=== PATIENT | female | born 1985 | race Caucasian/White ===

== ENCOUNTER 2018-03-29 05:20 | Inpatient (IN) | payer MEDICARE, MEDICAID ==
--- NOTE | 2018-03-24 11:58 | HP ---
HISTORY OF PRESENT ILLNESS: This is a 33-year-old female, who reports to our office for evaluation of headaches with an MRI that shows Chiari malformation type 1. The patient has headache throughout her life, however, in the last several months, they have gotten worse. If she picks up something or bears down to the restroom, she will get a headache that makes her feel like her head will explode. The patient has been taking butalbital and baclofen, which has some relief of her chronic headaches. She denies visits to ophthalmology and she states that she still feels dizzy and off balance on occasion, but denies vertigo. REVIEW OF SYSTEMS: A 10-point review of systems has been completed and is negative other than stated in the above HPI. PAST MEDICAL HISTORY: Alcohol and drug use, anemia, anxiety, allergies, chronic pain, depression, headaches, hypertension. PAST SURGICAL HISTORY: The patient denies any surgical history. FAMILY HISTORY: Father is alive. Mother is . SOCIAL HISTORY: The patient is a current smoker. Denies any alcohol use. States that she currently uses marijuana. MEDICATIONS: Denies. ALLERGIES: KRISTEL. PHYSICAL EXAMINATION: HEENT: Normal. Head is normocephalic and atraumatic. Pupils are equal, round, and reactive to light. Extraocular movements are intact. Hearing is intact. Moist mucous membranes. NECK: Soft and supple. No masses are noted. Range of motion is intact and tender midline. Base of the neck pain with lateral rotation. RESPIRATIONS: Normal work of breathing on room air. CARDIAC: Regular rate and rhythm. EXTREMITIES: Upper extremities, normal motor 5/5 strength bilateral, deltoids, biceps, triceps, wrist extension, finger extension, finger intrinsics. No deep tendon or sensory deficits noted. NEUROLOGIC: Awake, alert, and oriented x3. Memory, attention, fund of knowledge , and language are all normal. Cranial nerves 2 through 12 are intact. IMAGING DATA: MRI of the brain, Chiari malformation type 1. ASSESSMENT AND PLAN: Chiari malformation type 1. Dr. Billingsley has offered a Chiari decompression. The patient states her understanding of the risks and benefits and willing to proceed with surgery. Job ID: [id number] [facility]
[2018-03-29] MEDS ORDERED: Lidocaine 0.5%/Epinephrine 1:200,000 50 ml Vial ONE (06:19)
[2018-03-29] MEDS ORDERED: Bupivacaine HCl 0.5%/Epinephrine 1:200,000/PF 30 ml Vial ONE (06:19)
[2018-03-29] MEDS ORDERED: Sodium Chloride 0.9% 30 ML ONE (06:19)
[2018-03-29] MEDS ORDERED: Bacitracin Zinc Ointment 30 gm TUBE ONE (06:20)
[2018-03-29] MEDS ORDERED: Thrombin 5000 UNITS/5 ML VIAL ONE (06:20)
[2018-03-29] MEDS ORDERED: Fentanyl 100 MCG/2 ML VIAL ONE ×4 (06:33→13:14)
[2018-03-29] MEDS ORDERED: CEFAZOLIN 2 GM/50 ML BAG ONE (06:53)
[2018-03-29] MEDS ORDERED: Midazolam HCl 2 mg/2 ml Vial ONE (06:53)
[2018-03-29 07:24] LABS: INR-International Normal Ratio 1.1; Prothrombin Time 13.9 SEC (12.0-14.7)
[2018-03-29 07:26] LABS: #Eosinphils 0.2 thou/uL (0.0-0.7); #Lymphocytes 1.7 thou/uL (1.20-3.40); #Monocytes 0.3 thou/uL (0.11-0.59); #Neutrophils 5.5 thou/uL (1.40-6.50); %Basophils 0.2 % (0.0-1.0); %Eosinophils 2.4 % (0.0-10.0); %Lymphocytes 22.2 % (21.0-51.0); %Monocytes 3.9 % (0.0-10.0); %Neutrophils 71.3 % (42.0-75.0); Hemoglobin 9.8 g/dL (12.0-16.0); Mean Corpuscular HGB CONC 30.8 g/dL (32.0-36.0); Mean Corpuscular Hemoglobin 23.5 pg (27.0-31.0); Mean Corpuscular Volume 76.2 fL (78.0-98.0); Mean Platelet Volume 9.5 fL (7.4-10.4); Platelet Count 254 thou/uL (130-400); RBC Distribution Width 15.2 % (11.5-14.5); Red Blood Cell (RBC) Count 4.18 mill/uL (4.20-5.40); White Blood Cell (WBC) Count 7.7 thou/uL (4.8-10.8)
[2018-03-29] MEDS ORDERED: Ondansetron HCl/PF 4 MG/2 ML Vial IVP PRN (09:09)
[2018-03-29] MEDS ORDERED: PHENYLEPHRINE-NS 100 MCG/ML 10 ML SYRINGE ONE ×2 (09:24→15:49)
[2018-03-29] MEDS ORDERED: Phenylephrine HCL 10 MG/ML VIAL ONE (10:34)
[2018-03-29] MEDS ORDERED: Esmolol 100 MG/10 ML VIAL ONE ×2 (10:38→15:49)
[2018-03-29] MEDS ORDERED: Rocuronium Bromide 50 MG/5 ML VIAL ONE (10:39)
[2018-03-29] MEDS ORDERED: HYDROcodone/Acetaminophen 7.5/325 mg Tablet PO PRN (12:39)
[2018-03-29] MEDS ORDERED: Morphine 2 MG/ML SYRINGE SLOW IVP PRN (12:39)
[2018-03-29] MEDS ORDERED: Cepastat Lozenges 1 LOZ PO PRN (12:39)
[2018-03-29] MEDS ORDERED: diphenhydrAMINE 50 MG CAP PO PRN (12:39)
[2018-03-29] MEDS ORDERED: Morphine 4 MG/ML VIAL SLOW IVP PRN (12:39)
[2018-03-29] MEDS ORDERED: Acetaminophen 650 MG Suppository PR PRN (12:39)
[2018-03-29] MEDS ORDERED: Promethazine 25 MG TAB PO PRN (12:39)
[2018-03-29] MEDS ORDERED: Docusate 100 MG CAP PO PRN (12:39)
[2018-03-29] MEDS ORDERED: Acetaminophen 325 MG TAB PO PRN (12:39)
[2018-03-29] MEDS ORDERED: Mag-Al 1200 mg/1200 mg/30 ML UDCUP PO PRN (12:39)
[2018-03-29] MEDS ORDERED: Ondansetron PF 4 MG/2 ML Vial IVP PRN (12:39)
[2018-03-29] MEDS ORDERED: Acetaminophen/Codeine 30-300mg Tablet PO PRN (12:39)
[2018-03-29] MEDS ORDERED: Promethazine HCl 25 MG/ML VIAL IM PRN (12:39)
[2018-03-29] MEDS ORDERED: diphenhydrAMINE 50 MG/ML VIAL IVP PRN (12:39)
[2018-03-29] MEDS ORDERED: hydrALAZINE 20 MG/ML VIAL SLOW IVP PRN (12:39)
[2018-03-29] MEDS ORDERED: CEFAZOLIN/Water 2 GM/20 ML SYRINGE SLOW IVP SCH (12:45)
[2018-03-29] MEDS ORDERED: Scopolamine 1.5 mg/72 hour Patch TD SCH (13:00)
[2018-03-29] MEDS: CEFAZOLIN 2 GM/50 ML-DEXTROSE 2 GM in Premix Bag 1 BAG IVPB SCH ×2 (15:01→23:39)
[2018-03-29] MEDS: Sodium Chloride 0.9% 1,000 ML IV SCH (15:02)
[2018-03-29] MEDS: tiZANidine HCl 4 MG TAB PO SCH ×2 (15:03→20:38)
[2018-03-29] MEDS: HYDROcodone/Acetaminophen 7.5/325 mg Tablet PO PRN ×2 (15:32→19:44)
[2018-03-29] MEDS: Labetalol HCl 100 MG/20 ML VIAL SLOW IVP PRN ×3 (15:35→20:02)
[2018-03-29] MEDS ORDERED: Ondansetron PF 4 MG/2 ML Vial ONE (15:49)
[2018-03-29] MEDS ORDERED: Lidocaine 1% PF 5 ML VIAL ONE (15:49)
[2018-03-29] MEDS ORDERED: Glycopyrrolate 0.2 MG/ML 5 ML SYRINGE ONE (15:49)
[2018-03-29] MEDS ORDERED: PROPOFOL 200 MG/20 ML VIAL ONE (15:49)
[2018-03-29 16:03] VITALS: BMI 32.4
[2018-03-29] MEDS: Benztropine 1 MG TAB PO SCH (20:38)
[2018-03-29] MEDS: Metoprolol Tartrate 25 MG TAB PO SCH (20:38)
[2018-03-29] MEDS: Haloperidol 5 MG TAB PO SCH (20:38)
[2018-03-29] MEDS ORDERED: Famotidine/PF 20 mg/2ml Vial SLOW IVP SCH (21:00)
[2018-03-29] MEDS ORDERED: Gabapentin 300 MG CAP PO PRN (21:21)
[2018-03-29] MEDS: Topiramate 25 MG TAB PO SCH (21:37)
[2018-03-30] MEDS: HYDROcodone/Acetaminophen 7.5/325 mg Tablet PO PRN ×6 (00:05→20:27)
[2018-03-30] MEDS: Sodium Chloride 0.9% 1,000 ML IV SCH ×2 (04:21→15:10)
[2018-03-30] MEDS: FLUoxetine HCl 20 MG CAP PO SCH (08:22)
[2018-03-30] MEDS: tiZANidine HCl 4 MG TAB PO SCH ×3 (08:24→20:22)
[2018-03-30] MEDS: Spironolactone 25 MG TAB PO SCH (08:25)
[2018-03-30] MEDS: Metoprolol Tartrate 25 MG TAB PO SCH ×2 (08:26→20:22)
[2018-03-30] MEDS: Lorazepam 0.5 MG TAB PO SCH (08:49)
[2018-03-30] MEDS: Famotidine 20 MG TAB PO SCH ×2 (08:49→20:22)
--- NOTE | 2018-03-30 08:57 | PRG ---
DATE OF SERVICE: 03/30/2018 NEUROSURGERY PROGRESS NOTE I saw Ms. Pretty on rounds this morning. She complained of some nausea and dizziness immediately after surgery that has cleared up overnight. She is requesting pain medication every few hours. She was able to stand and transfer to commode yesterday. She kept her dinner down and is anticipating breakfast this morning. Her neck is sore. Vital signs that I saw look stable. On examination, Ms. Pretty is awake and alert. She is answering questions appropriately. Has a tiny amount of nystagmus that is far lateral in gaze, but it is quite limited and not bothersome. Other cranial nerves are all intact including the lower cranial nerves. There is no lateralizing motor sensory deficits that I can appreciate and the bandage is clean and dry. Ms. Pretty could be mobilized today with the assistance of nursing and physical therapy. She can move out of the ICU, if she tolerates breakfast and lunch and is able to safely perform all activities of daily living, she could leave as early as this afternoon. A muscle relaxant and Tylenol No. 3 will be prescribed. We will make sure her pain control regimen is adequate before discharge. Job ID: [id number]
[2018-03-30] MEDS: Baclofen 10 MG TAB PO PRN (12:32)
[2018-03-30] MEDS: Haloperidol 5 MG TAB PO SCH (20:22)
[2018-03-30] MEDS: Benztropine 1 MG TAB PO SCH (20:22)
[2018-03-30] MEDS: Topiramate 25 MG TAB PO SCH (20:23)
[2018-03-30] MEDS: Acetaminophen/Codeine 30-300mg Tablet PO PRN (23:28)
[2018-03-31] MEDS: HYDROcodone/Acetaminophen 7.5/325 mg Tablet PO PRN ×2 (01:20→07:36)
[2018-03-31] MEDS: Acetaminophen/Codeine 30-300mg Tablet PO PRN (04:35)
[2018-03-31] MEDS: Baclofen 10 MG TAB PO PRN (05:27)
[2018-03-31] MEDS: Sodium Chloride 0.9% 1,000 ML IV SCH (05:30)
[2018-03-31 08:26] VITALS: BP 153/98; TEMP 97.8
[2018-03-31] MEDS: FLUoxetine HCl 20 MG CAP PO SCH (08:47)
[2018-03-31] MEDS: Metoprolol Tartrate 25 MG TAB PO SCH (08:48)
[2018-03-31] MEDS: Famotidine 20 MG TAB PO SCH (08:48)
[2018-03-31] MEDS: tiZANidine HCl 4 MG TAB PO SCH (08:48)
[2018-03-31] MEDS: Spironolactone 25 MG TAB PO SCH (08:48)
--- NOTE | 2018-03-31 09:07 | PRG ---
DATE OF SERVICE: 03/31/2018 SUBJECTIVE: Ms. Pretty is two days out from Chiari decompression. Neck is sore, but her Valsalva headaches are gone. She made it to general floor in our hospital, out of the ICU yesterday and is doing well. Vital signs recorded overnight are stable. Neurological examination is quite good. Bandage is still clean and dry. Ms. Pretty is ready for discharge. She was safe for activities of daily living. She walked completely around the floor. We will make sure she has muscle relaxant, pain medication to go home. We went over wound care and activity restrictions, and her followup will be arranged in our office. Scheduling coordinators will contact her with a followup appointment. Job ID: [id number]
[2018-03-31] MEDS: Lorazepam 0.5 MG TAB PO SCH (09:32)
--- NOTE | 2018-03-31 17:02 | OP ---
DATE OF PROCEDURE: 03/29/2018 SLED MAKER: Adri Walden PA-C PREOPERATIVE INDICATION: Treat pain, prevent neurological deterioration. 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 PROCEDURES PERFORMED: Suboccipital decompressive craniectomy, C1 laminectomy, durotomy, dural patch graft closure with Bovine pericardial patch under operating microscope. PREOP MEDICATIONS: Ancef 2 g IV. DRAINS: Zero. DRAIN TYPE: None. DESCRIPTION OF PROCEDURE: The patient was brought to the operating room. General endotracheal anesthesia was induced. The patient was positioned prone on the operating table with her chest and hips supported by gel-filled chest rolls. Head was immobilized using Contreras dariusz headholder and Contreras detachment for the operating table. Hair was removed from the back of the neck and head with electric clippers. The neck was sterilely prepped and draped. We opened with a 10-blade knife and controlled bleeding with Bipolar and monopolar cautery. We used monopolar cautery to dissect through the subcutaneous tissues to the ligamentum nuchae. We dissected the ligamentum nuchae down to the spinous process of C2. We exposed the entire suboccipital cranium. I placed the self-retaining retractor. We widened our dissection until we are at the lateral aspect of C1. We then brought a high speed drill into the field and placed in the brian hole in either side of the suboccipital keyhole. I the dura from anterior surface of the cranium with the Pinnacle free dissector. We then used a high-speed drill to thin the bone in the shape of rectangular craniectomy. The thinned bone was then with the Kerrison rongeurs. I removed larger bone fragment. We then drilled our way close to the transverse sinus on both sides. We widened our craniectomy with large Kerrison and we thinned the bone at the foramen magnum with the high-speed drill as well. The foramen was opened with Kerrison's. We widened the opening of the foramen magnum until we were lateral to the dura on both sides. Using the Kerrison rongeur, we fashioned the laminectomy at C1 removing the posterior arch of C1. Dense fibrous tissues under the bone at the occiput to C1 interval and we dissected beneath this down to the dura. Then, I brought the operating microscope in the field. Under microscopic magnification and using microsurgical techniques, we carefully opened the dura in a Y-shaped fashion with the vertical end of the Y, the area of the arch of C1 and the 2 arms pointing superiorly and laterally towards the transverse sinus. We then packed up the dura with interrupted 4-0 silk and under the microscope, we dissected the arachnoid off of the tonsils of cerebellum in the lateral confines of the dura. We then brought the Bovine pericardial patch into the field. We cut the patch to fit the dural defect. Using running 4-0 Prolene, we sewed the dural patch into the defect. This was a watertight closure. We filled the posterior fossa with irrigation before final closure. We reinforced our closure with DuraSeal tissue sealant. We took the operating microscope back out of the field. The suboccipital musculature was closed in anatomic layers. We applied a sterile dressing. This is a clean case with no contamination. Job ID: [id number] [facility]
== END 2018-03-31 09:45 | disposition home or self-care (01) | DRG 27 ==
LOC: SURG A 05:20 → CCU 14:36 → SURG A 03-30 10:01
PROVIDERS: ADMIT Neurological Surgery; ATTEND Neurological Surgery
PROC: 00NC0ZZ Release Cerebellum, Open Approach (ICD-10-PCS; principal; 2018-03-29)
PROC: 00U20JZ Supplement Dura Mater with Synthetic Substitute, Open Approach (ICD-10-PCS; 2018-03-29)
DX: G93.5 Compression of brain (principal)
CPT/HCPCS: 76001; 85025; 85610; 90471; 90686; 96374; C1769; G0008; J0670; J1642; J2001; J2250; J2270; J2370; J2405; J2704; J3010; J3370; J3490; S0028